=== PATIENT | female | born 1995 | race Caucasian/White ===

== ENCOUNTER 2017-01-29 23:11 | Emergency (ER) | payer OTHER ==
[~2017-01-29] VITALS: Ht 165.1 cm; Wt 70.9 kg
[2017-01-29] MEDS ORDERED: ONDANSETRON 2 MG/ML (Z0FRAN) 2 ML VIAL IV ONE (23:35)
[2017-01-29] MEDS ORDERED: SODIUM CHLORIDE FLUSH 3 ML SYR IV PRN (23:35)
[2017-01-29] MEDS ORDERED: SODIUM CHLORIDE FLUSH 10 ML SYR IV PRN (23:35)
[2017-01-29 23:57] LABS: BASOPHILS % (AUTO) 0 % (0-2); EOSINOPHILS # (AUTO) 0.2 10^3uL; EOSINOPHILS % (AUTO) 2 % (0-4); LYMPHOCYTES # (AUTO) 1.7 X10^3; MEAN CORPUSCULAR HEMOGLOBIN 30.5 PG (26.0-34.0); MEAN CORPUSCULAR HGB CONC 33.7 g/dL (31.0-37.0); MEAN CORPUSCULAR VOLUME 91 FL (80-100); MEAN PLATELET VOLUME 10.3 FL (6.0-9.5); MONOCYTES # (AUTO) 0.5 X10^3; MONOCYTES % (AUTO) 5 % (3-11); NEUTROPHILS # (AUTO) 6.4 X10^3; NEUTROPHILS % (AUTO) 73 % (51-67); PLATELET COUNT 252 10^3uL (150-450); WHITE BLOOD COUNT 8.85 10^3uL (4.0-11.0)
[2017-01-30 00:07] LABS: ALBUMIN 4.8 g/dL (3.4-5.0); ANION GAP 20.9 MEQ/L (3-15); CALCULATED IONIZED CALCIUM 3.6 mg/dL (3.8-4.6); TOTAL PROTEIN 8.9 g/dL (6.4-8.5)
[2017-01-30] MEDS ORDERED: BENZONATATE 100 MG (TESSALON) CAPSULE PO ONE (00:10)
[2017-01-30] MEDS ORDERED: ED- ONDANSETRON ODT 4 MG (ZOFRAN) 4 TABLETS/BTL PO ONE (00:35)
[2017-01-30] MEDS ORDERED: ED- oxyCODONE/ACETAMINOPHEN 5MG-325MG (PERCOCET) 8 TABLETS/BTL PO ONE (00:35)
[2017-01-30] MEDS ORDERED: ED- BENZONATATE 100MG (TESSALON) 6 CAPSULES/BTL PO ONE (00:35)
[2017-01-30] MEDS ORDERED: ONDA4TAB8 PO (00:39)
[2017-01-30 01:17] VITALS: BP 134/78
--- NOTE | 2017-01-30 06:41 | Diagnostic Imaging Report ---
INDICATION: Cough and hemoptysis FINDINGS: Best seen on the lateral view is infiltrate in the left lower lobe anteriorly. No effusion or pneumothorax. IMPRESSION: Focal infiltrate anterior aspect left lower lobe medially suspect for pneumonia. Dictated by: Dictated on workstation # [id number]
== END 2017-01-30 01:18 | disposition home or self-care (01) ==
LOC: ED 23:15
DX: B34.9 Viral infection, unspecified (principal)
CPT/HCPCS: 36415; 71020; 80053; 85025; 86140; 96361; 96374; 99284; J2405; J7030; 99283